=== PATIENT | male | born 1985 | race African-American/Black ===

== ENCOUNTER 2024-07-16 10:44 | Emergency (ER) | payer MEDICAID ==
[~2024-07-16] VITALS: Ht 172.7 cm; Wt 87.9 kg
[2024-07-16 10:58] VITALS: O2SAT 100
[2024-07-16 11:03] VITALS: BP 111/78; PULSE 61; RESP 16; TEMP 37; O2SAT 100
[2024-07-16] MEDS ORDERED: IBUP-2030 MT (11:23)
[2024-07-16] MEDS: ACETAMINOPHEN 325MG TABLET PO ONE (12:02)
== END 2024-07-16 13:13 | disposition home or self-care (01) ==
LOC: ER 10:44
DX: R51.9 Headache, unspecified (principal)
CPT/HCPCS: 99284